=== PATIENT | female | born 1965 | race Caucasian/White ===

== ENCOUNTER 2018-07-04 20:11 | Observation (INO) ==
--- NOTE | 2018-07-04 20:46 | Emergency Department Note ---
ED Disposition Clinical Impression: Renal insufficiency, Overweight (BMI 25.0-29.9) Abscess of skin or subcutaneous tissue Qualifiers: Site of cutaneous abscess: trunk Site of cutaneous abscess of trunk: back Qualified Code(s): L02.212 - Cutaneous abscess of back [any part, except buttock] Disposition: Admitted as Observation Condition on Discharge: Good - Critical Care Critical Care Time: No Attestation: On 07/04/18, the high probability of a clinically significant, sudden or life threatening deterioration of the following system(s) required my full and direct attention, intervention and personal management. The time I documented below is in addition to time spent performing reported procedures but includes the follo wing listed in this critical care notation. Medical Decision Making - Medical Records Medical records reviewed: Yes: I reviewed the patient's medical records. - Caleb Inquiry Pt receiving controlled substance: No Vital Signs: 07/04/18 20:19 Temperature 98.1 F Temperature Source Oral Pulse Rate [Right Brachial] 78 Respiratory Rate 15 Blood Pressure [Right Arm] 133/74 Blood Pressure Mean [Right Arm] 93 Blood Pressure Source [Right Arm] Automatic Cuff Blood Pressure Position [Right Arm] Sitting 02 Sat by Pulse Oximetry 98 Oxygen Delivery Method Room Air - Lab Data Lab results reviewed: Yes: I reviewed the patient's lab results. Lab Results 07/04/18 20:40: WBC 10.9 H, RBC 4.16 L, Hgb 12.4, Hct 39.4, MCV 94.7, MCH 29.9, MCHC 31.6 L, RDW 13.4, Plt Count 406, MPV 7.0 L, Neut % (Auto) 69.2, Lymph % (Auto) 22.6, [place] % (Auto) 5.9, Eos % (Auto) 1.7, Baso % (Auto) 0.6, Neut # (Auto) 7.5, Lymph # (Auto) 2.5, [place] # (Auto) 0.7, Eos # (Auto) 0.2, Baso # (Auto) 0.1 07/04/18 20:40: Sodium 141, Potassium 4.1, Chloride 105, Carbon Dioxide 27, Anion Gap 13.1, BUN 20 H, Creatinine 1.23 H, Estimated Creat Clear 72, Estimated GFR 46 L, Est GFR ( Amer) 55 L, Glucose 103, Calcium 8.6, Total Bilirubin 0.3, AST 31, ALT 50, Alkaline Phosphatase 115, Total Protein 7.3, Albumin 3.3 L, Globulin 4.0 H, Albumin/Globulin Ratio 0.8 L 07/04/18 20:40: Lactate 1.1 07/04/18 20:40: C-Reactive Protein 3.6 H Result diagrams: 07/04/18 20:40 07/04/18 20:40 Orders (Tests/Meds): ED MEDICATIONS Generic Name Dose Route Start Last Admin Trade Name Freq PRN Reason Stop Dose Admin Vancomycin HCl 1,500 mg/ 250 mls @ 125 mls/hr 07/04/18 21:17 07/04/18 21:33 Sodium Chloride IV 07/04/18 23:16 125 mls/hr ONCE ONE Administration ORDERS Category Date Time Status ESR [Erythrocyte Sedimentation Rate] Stat Lab 07/04/18 20:40 Received Blood Culture Stat Micro 07/04/18 20:40 Received - Physician Consults Physician Consulted: sound Reason -: Admission Skin/Abscess/FB HPI - General Chief complaint: Skin/Abscess/Foreign Body Stated complaint: lower back a cyst Time Seen by Provider: 07/04/18 20:25 Mode of Arrival: Ambulatory Limitations: No Limitations Description of Symptoms (Recalled from ER Triage Doc. by RN): presents with abscess to left lower back; states she was seen in urgent care in [place] while riding over the road with her and they put her on antibiotics and pain medicines; abscess has soft center surrounded by cellulitis; worried whether will need lanced or not; - History of Present Illness HPI narrative: pt with progressive swelling to lower back - pt with no hx of diabetes and [facility] - pt on abx with sl improvement - pt with no fever - MD complaint: abscess/boil Onset (ago): day(s) Tetanus up to date: unsure Location: back Severity: moderate Associated symptoms: denies other symptoms Treatments prior to arrival: none - Related Data Home Medications Medication Instructions Recorded Confirmed Hydrocodone/Acetaminophen 1 each PO DIRECTED 07/04/18 07/04/18 [Hydrocodone-Acetamin 5-325 mg] Sulfamethoxazole/Trimethoprim 1 each PO BID 07/04/18 07/04/18 [Bactrim DS tablet] cephALEXin [cephALEXin 500mg 500 mg PO QID 07/04/18 07/04/18 capsule] Allergies Allergy/AdvReac Type Severity Reaction Status Date / Time No Known Drug Allergies Allergy Mild Verified 07/04/18 20:29 [NO KNOWN DRUG ALLERGIES] [facility] History - Hepatitis A Screen Drug use history?: No High risk sexual behaviors?: No History of sexually transmitted infection?: No Currently employed?: No Childcare worker?: No Do you have indoor plumbing?: Yes Do you have electricity?: Yes Attestation statement:: This patient has been screened for Hepatitis A risk factors. I have reviewed the patient's past medical history: Yes - Social History Educational Level: Completed High School Smoking Status: Never smoker Alcohol Intake: never Occupational Status: unemployed Household Members: spouse - Psychiatric History Expresses thoughts of harming self/others: None Suicide Plan Description: No Plan ROS Obtained: Yes All systems reviewed & no additional complaints - Constitutional Constitutional: Denies fever(s) - Eyes Eyes: Denies change in vision - ENT Ears, Nose, Mouth, and Throat: Denies sore throat - Cardiovascular Cardiovascular: Denies chest pain - Respiratory Respiratory: No cough - Gastrointestinal Gastrointestingal: Denies: abdominal pain - Genitourinary Female Genitourinary: Denies hematuria - Musculoskeletal Musculoskeletal: Denies joint pain, Denies joint swelling - Integumentary/Breasts Skin/Breast: Reports as per HPI, Reports boil - Neurologic Neurologic: Denies abnormal gait, Denies headache(s) Physical Exam - General General appearance: alert - Head Head exam: normocephalic - Eye Eye exam: Present: PERRL, EOMI - ENT ENT exam: Present: mucous membranes moist, other (poor dentition) - Neck Neck exam: Present: full ROM - Respiratory Respiratory exam: Absent: respiratory distress - Cardiovascular Cardiovascular exam: Present: regular rate - Abdominal Exam Abdominal exam: Present: soft - Extremities Exam Extremities exam: Present: full ROM - Neurological Exam Neurological exam: Present: alert, oriented X3, CN II-XII intact - Psychiatric Psychiatric exam: Present: normal affect - Skin Skin exam: Present: other (3x5 cm abscess lt lumbar area w/o drainage )
[2018-07-04 20:51] LABS: Basophils # 0.1 K/mm3 (0-0.2); Basophils % 0.6 % (0.1-2.0); Eosinophils # 0.2 K/mm3 (0.0-0.4); Eosinophils % 1.7 % (0.1-12.0); Hematocrit 39.4 % (37.0-47.0); Hemoglobin 12.4 g/dL (12.2-16.2); Lymphocytes # 2.5 K/mm3 (0.7-4.5); Lymphocytes % 22.6 % (10-50); Mean Corpuscular HGB Conc 31.6 g/dL (31.8-35.4); Mean Corpuscular Hemoglobin 29.9 pg (27.0-31.2); Mean Corpuscular Volume 94.7 fl (81-99); Monocytes # 0.7 K/mm3 (0.1-1.0); Monocytes % 5.9 % (1.7-9.3); Neutrophils # 7.5 K/mm3 (1.8-7.8); Neutrophils % 69.2 % (37.0-80.0); Platelet Count 406 K/mm3 (142-424); Red Blood Count 4.16 M/mm3 (4.20-5.40); Red Cell Distribution Width 13.4 % (11.5-17.5); White Blood Count 10.9 K/mm3 (4.8-10.8)
[2018-07-04 21:02] LABS: Albumin Level 3.3 gm/dL (3.4-5.0); Albumin/Globulin Ratio 0.8 (1.1-1.8); Anion Gap 13.1 mEq/L (5-15); Bilirubin,Total 0.3 mg/dL (0.2-1.0); Calcium 8.6 mg/dL (8.5-10.1); Potassium 4.1 mmoL/L (3.5-5.1); Total Protein,Serum 7.3 gm/dL (6.4-8.2)
[2018-07-05 06:30] LABS: Basophils # 0.1 K/mm3 (0-0.2); Basophils % 0.6 % (0.1-2.0); Eosinophils # 0.1 K/mm3 (0.0-0.4); Eosinophils % 1.5 % (0.1-12.0); Hematocrit 35.5 % (37.0-47.0); Lymphocytes # 1.4 K/mm3 (0.7-4.5); Lymphocytes % 15.8 % (10-50); Mean Corpuscular HGB Conc 31.2 g/dL (31.8-35.4); Mean Corpuscular Hemoglobin 30.1 pg (27.0-31.2); Mean Corpuscular Volume 96.6 fl (81-99); Mean Platelet Volume 7.6 fl (7.4-10.4); Monocytes # 0.6 K/mm3 (0.1-1.0); Monocytes % 6.5 % (1.7-9.3); Neutrophils # 6.8 K/mm3 (1.8-7.8); Neutrophils % 75.6 % (37.0-80.0); Platelet Count 324 K/mm3 (142-424); Red Blood Count 3.67 M/mm3 (4.20-5.40); Red Cell Distribution Width 13.3 % (11.5-17.5)
[2018-07-05 06:43] LABS: Hemoglobin 11.3 g/dL (12.2-16.2)
[2018-07-05 07:11] LABS: Anion Gap 13.5 mEq/L (5-15); Potassium 4.5 mmoL/L (3.5-5.1)
--- NOTE | 2018-07-05 10:56 | Consult Report ---
*Admission Date: 07/04/18 *Chief complaint: Left flank abscess. *History of present illness: Ms. Spence is a 53-year-old female with increasing pain and swelling along the left flank. Presented initially 1 week ago; patient thought that she had a "spider bite". Travels with her . Significant progression over the past 7 days while on work trip. Increasing pain prompted evaluation at a local urgent treatment Center in [facility]. Keflex and Bactrim provided. Slight improvement, however, persistent pain prompted emergency department evaluation and [facility]. Admitted. Surgical consultation requested for possible incision and drainage. No similar episodes. No prior abscess. No prior MRSA. Fever chills. No nausea or vomiting. Review of Systems - Review of Systems Review of systems:: pertinent systems reviewed and negative unless documented below Complete review of systems. [facility] History Medical History: Reports:: Hyperlipidemia, Hypertension Denies:: Cancer, Diabetes Mellitus Type 1, Diabetes Mellitus Type 2, MRSA Have you ever received a pneumonia vaccine?: No Have you received a flu vaccine this season?: No Other Medical History: Reports: Arthritis Other Surgeries: Yes: Cholecystectomy, Hysterectomy-Total, Tubal Ligation, Other (TONSILLECTOMY) Amputation: No Fractures: No - *Social History Educational Level: Attended College Smoking Status: Never smoker Alcohol Intake: never Occupational Status: unemployed Housing: other Household Members: spouse Travel in the last 8 weeks: None - Psychiatric History Expresses thoughts of harming self/others: None Suicide Plan Description: No Plan *Family Hx:: Coronary Artery Disease, Hypertension Meds Home Medications Medication Instructions Recorded Confirmed Type Aspirin [Aspir 81] 81 mg PO HS 07/04/18 07/04/18 History Hydrocodone/Acetaminophen 1 each PO DIRECTED 07/04/18 07/04/18 History [Hydrocodone-Acetamin 5-325 mg] Sulfamethoxazole/Trimethoprim 1 each PO BID 07/04/18 07/04/18 History [Bactrim DS tablet] cephALEXin [cephALEXin 500mg 500 mg PO QID 07/04/18 07/04/18 History capsule] Allergies Allergy/AdvReac Type Severity Reaction Status Date / Time No Known Drug Allergies Allergy Mild Verified 07/04/18 20:29 [NO KNOWN DRUG ALLERGIES] Exam Vital signs and Labs for Last 24 Hours: Temp Pulse Resp BP Pulse Ox 98.5 F 104 H 16 142/85 H 100 07/05/18 07:55 07/05/18 07:55 07/05/18 07:55 07/05/18 07:55 07/05/18 07:55 Laboratory Results - last 24 hr 07/04/18 20:40: WBC 10.9 H, RBC 4.16 L, Hgb 12.4, Hct 39.4, MCV 94.7, MCH 29.9, MCHC 31.6 L, RDW 13.4, Plt Count 406, MPV 7.0 L, Neut % (Auto) 69.2, Lymph % (Auto) 22.6, [place] % (Auto) 5.9, Eos % (Auto) 1.7, Baso % (Auto) 0.6, Neut # (Auto) 7.5, Lymph # (Auto) 2.5, [place] # (Auto) 0.7, Eos # (Auto) 0.2, Baso # (Auto) 0.1 07/04/18 20:40: Sodium 141, Potassium 4.1, Chloride 105, Carbon Dioxide 27, Anion Gap 13.1, BUN 20 H, Creatinine 1.23 H, Estimated Creat Clear 72, Estimated GFR 46 L, Est GFR ( Amer) 55 L, Glucose 103, Calcium 8.6, Total Bilirubin 0.3, AST 31, ALT 50, Alkaline Phosphatase 115, Total Protein 7.3, Albumin 3.3 L, Globulin 4.0 H, Albumin/Globulin Ratio 0.8 L 07/04/18 20:40: Lactate 1.1 07/04/18 20:40: ESR 44 H 07/04/18 20:40: C-Reactive Protein 3.6 H 07/05/18 06:12: WBC 9.0, RBC 3.67 L, Hgb 11.3 L, Hct 35.5 L, MCV 96.6, MCH 30.1, MCHC 31.2 L, RDW 13.3, Plt Count 324, MPV 7.6, Neut % (Auto) 75.6, Lymph % (Auto) 15.8, [place] % (Auto) 6.5, Eos % (Auto) 1.5, Baso % (Auto) 0.6, Neut # (Auto) 6.8, Lymph # (Auto) 1.4, [place] # (Auto) 0.6, Eos # (Auto) 0.1, Baso # (Auto) 0.1 07/05/18 06:12: Sodium 143, Potassium 4.5, Chloride 107, Carbon Dioxide 27, Anio n Gap 13.5, BUN 15, Creatinine 1.08 H, Estimated Creat Clear 95, Estimated GFR 53 L, Est GFR ( Amer) 64, Glucose 93, Calcium 8.0 L I & O for Last 24 hours: Intake & Output 07/02/18 07/03/18 07/04/18 07/05/18 11:59 11:59 11:59 11:59 Intake Total 1155 / 1155 Balance 1155 / 1155 Weight 99.592 kg - Constitutional no acute distress - *Routine Respiratory Exam Present: CTA bilaterally - *Routine Cardiovascular Exam Present: RRR - *Routine Abdominal Exam Present: soft - Routine Back/Spine/Pelvis Exam Back/Spine: Present: paraspinal tenderness, erythema Comments: Area of induration with overlying cellulitis and fluctuance along the left lower back/flank. Results - Labs 07/05/18 06:12 07/05/18 06:12 Laboratory Results - last 24 hr 07/04/18 20:40: WBC 10.9 H, RBC 4.16 L, Hgb 12.4, Hct 39.4, MCV 94.7, MCH 29.9, MCHC 31.6 L, RDW 13.4, Plt Count 406, MPV 7.0 L, Neut % (Auto) 69.2, Lymph % (Auto) 22.6, [place] % (Auto) 5.9, Eos % (Auto) 1.7, Baso % (Auto) 0.6, Neut # (Auto) 7.5, Lymph # (Auto) 2.5, [place] # (Auto) 0.7, Eos # (Auto) 0.2, Baso # (Auto) 0.1 07/04/18 20:40: Sodium 141, Potassium 4.1, Chloride 105, Carbon Dioxide 27, Anion Gap 13.1, BUN 20 H, Creatinine 1.23 H, Estimated Creat Clear 72, Estimated GFR 46 L, Est GFR ( Amer) 55 L, Glucose 103, Calcium 8.6, Total Bilirubin 0.3, AST 31, ALT 50, Alkaline Phosphatase 115, Total Protein 7.3, Albumin 3.3 L, Globulin 4.0 H, Albumin/Globulin Ratio 0.8 L 07/04/18 20:40: Lactate 1.1 07/04/18 20:40: ESR 44 H 07/04/18 20:40: C-Reactive Protein 3.6 H 07/05/18 06:12: WBC 9.0, RBC 3.67 L, Hgb 11.3 L, Hct 35.5 L, MCV 96.6, MCH 30.1, MCHC 31.2 L, RDW 13.3, Plt Count 324, MPV 7.6, Neut % (Auto) 75.6, Lymph % (Auto) 15.8, [place] % (Auto) 6.5, Eos % (Auto) 1.5, Baso % (Auto) 0.6, Neut # (Auto) 6.8, Lymph # (Auto) 1.4, [place] # (Auto) 0.6, Eos # (Auto) 0.1, Baso # (Auto) 0.1 07/05/18 06:12: Sodium 143, Potassium 4.5, Chloride 107, Carbon Dioxide 27, Anion Gap 13.5, BUN 15, Creatinine 1.08 H, Estimated Creat Clear 95, Estimated GFR 53 L, Est GFR ( Amer) 64, Glucose 93, Calcium 8.0 L Assessment and Plan (1) Abscess of skin or subcutaneous tissue Current visit: Yes Status: Acute Qualifiers: Site of cutaneous abscess: trunk Site of cutaneous abscess of trunk: back Qualified Code(s): L02.212 - Cutaneous abscess of back [any part, except buttock] Category: Medical Code(s): L02.91 - Cutaneous abscess, unspecified - Assessment and plan all Dx Assessment and Plan for all problems:: Left flank abscess. Area of fluctuance noted at the apex of cellulitis. Recommend bedside incision and drainage. Transition to oral antibiotics. Discharge planning after drainage.
--- NOTE | 2018-07-05 11:45 | Operative Note ---
Date of procedure: 07/05/18 Pre-op Diagnosis:: Left flank abscess. Post-op Diagnosis:: Left flank abscess. Procedure performed:: Incision and drainage of left flank abscess. Surgeon:: Nahid Valladares MD Anesthesia: local Estimated blood loss (mL): 5 Operative findings:: Relatively small abscess with significant associated induration. Operative note:: Patient was properly identified and consent was obtained. Patient was placed in the right lateral decubitus position. Area of induration and fluctuance noted over the left flank. Blanching of the skin was noted at the apex with underlying fluctuance. [place]far[place] of lesion was locally anesthetized with lidocaine 1%. Cruciate incision was made with scalpel blade. Immediate rash of purulent drainage was obtained. Yankauer suction placed in the incision site. Additional pus was evacuated. Abscess cavity was noted to be relatively small. Significant associated induration. Immediate improvement in appearance was noted. No loculations. No evidence of undrained fluid. Wound packed with 2 inch Amanuel gauze. Covered with 4 x 4 dressing. Patient tolerated procedure well. Condition: stable Disposition: no change Complications:: None.
--- NOTE | 2018-07-05 11:55 | Pharmacy Consult Notes ---
[facility] Pharmacy VTE Monitoring - Patient Demographics Admission date: 07/04/18 Report Date: 07/05/18 Time: 11:55 Allergies/Adverse Reactions: Patient Allergies No Known Drug Allergies [NO KNOWN DRUG ALLERGIES] Allergy (Mild, Verified 07/04/18 20:29) Height: 1.68 m Weight: 99.592 kg Patient Problems: Current Active Problems Abscess of skin or subcutaneous tissue (Acute) Renal insufficiency (Acute) Overweight (BMI 25.0-29.9) (Acute) - VTE Risk Labs: VTE Related Lab Results Hgb 11.3 g/dL (12.2-16.2) L 07/05/18 06:12 Hct 35.5 % (37.0-47.0) L 07/05/18 06:12 Plt Count 324 K/mm3 (142-424) 07/05/18 06:12 BUN 15 mg/dL (7-18) 07/05/18 06:12 Creatinine 1.08 mg/dL (0.55-1.02) H 07/05/18 06:12 Estimated Creat Clear 95 mL/min (50-200) 07/05/18 06:12 Was VTE Risk Assessment Performed: Yes VTE Score: 3 VTE Risk Level: Low Risk - Prophylaxis VTE Prophylaxis Ordered?: Yes Types of VTE Prophylaxis: TEDS Knee High Location of Applied Device: Bilateral Lower Extremeties
--- NOTE | 2018-07-05 11:58 | H&P/Discharge Summary ---
General - General Admission date:: 07/04/18 Discharge date: 07/05/18 *Admission Date: 07/04/18 *Chief complaint: abscess on back *History of present illness: Patient was admitted to our facility for abscess in her left flank region after failing 2 outpatient abx (penicillin and bactrim). She mentioned that she feeling pain and the abscess wasn't getting any better, so she decided to come to our ER for further evaluation. She endorsed that the swelling started about a 5-7 days ago and was thought to be a spider bite. She was travelling with her and was evaluated at in [place], which is where she was given the abx. She mentioned that there was some slight improvement with abx but persistent pain, which was treated with pain pills per patient. No prior abscess. No prior MRSA. No Fever or chills. No nausea or vomiting. [facility] History I have reviewed the patient's past medical history: Yes Medical History: Reports:: Hyperlipidemia, Hypertension Denies:: Cancer, Diabetes Mellitus Type 1, Diabetes Mellitus Type 2, MRSA Have you ever received a pneumonia vaccine?: No Have you received a flu vaccine this season?: No Other Medical History: Reports: Arthritis Other Surgeries: Yes: Cholecystectomy, Hysterectomy-Total, Tubal Ligation, Other (TONSILLECTOMY) Amputation: No Fractures: No - *Social History Educational Level: Attended College Smoking Status: Never smoker Alcohol Intake: never Occupational Status: unemployed Housing: other Household Members: spouse Travel in the last 8 weeks: None - Psychiatric History Expresses thoughts of harming self/others: None Suicide Plan Description: No Plan *Family Hx:: Coronary Artery Disease, Hypertension Review of Systems - Constitutional Denies fever(s), Denies lack of energy - Eyes Denies blind spots - ENT Denies abnormal hearing - *Cardiovascular Denies chest pain, Denies chest pain at rest - *Respiratory Denies change in phlegm color - *Gastrointestinal Denies abdominal pain - *Musculoskeletal Denies abnormal walking - Integumentary/Breasts Denies acne - *Neurologic Denies abnormal walking, Denies headache(s) - Psychiatric Denies abnormal sleep pattern - Endocrine Denies cold intolerance - Hematologic/Lymphatic Denies easy bleeding - Allergic/Immunologic Denies GI upset with certain foods (abscess on back noted s/p I & D) Exam Vital signs and Labs for Last 24 Hours: Temp Pulse Resp BP Pulse Ox 98.5 F 104 H 16 142/85 H 100 07/05/18 07:55 07/05/18 07:55 07/05/18 07:55 07/05/18 07:55 07/05/18 07:55 Laboratory Results - last 24 hr 07/04/18 20:40: WBC 10.9 H, RBC 4.16 L, Hgb 12.4, Hct 39.4, MCV 94.7, MCH 29.9, MCHC 31.6 L, RDW 13.4, Plt Count 406, MPV 7.0 L, Neut % (Auto) 69.2, Lymph % (Auto) 22.6, [place] % (Auto) 5.9, Eos % (Auto) 1.7, Baso % (Auto) 0.6, Neut # (Auto) 7.5, Lymph # (Auto) 2.5, [place] # (Auto) 0.7, Eos # (Auto) 0.2, Baso # (Auto) 0.1 07/04/18 20:40: Sodium 141, Potassium 4.1, Chloride 105, Carbon Dioxide 27, Anion Gap 13.1, BUN 20 H, Creatinine 1.23 H, Estimated Creat Clear 72, Estimated GFR 46 L, Est GFR ( Amer) 55 L, Glucose 103, Calcium 8.6, Total Bilirubin 0.3, AST 31, ALT 50, Alkaline Phosphatase 115, Total Protein 7.3, Albumin 3.3 L, Globulin 4.0 H, Albumin/Globulin Ratio 0.8 L 07/04/18 20:40: Lactate 1.1 07/04/18 20:40: ESR 44 H 07/04/18 20:40: C-Reactive Protein 3.6 H 07/05/18 06:12: WBC 9.0, RBC 3.67 L, Hgb 11.3 L, Hct 35.5 L, MCV 96.6, MCH 30.1, MCHC 31.2 L, RDW 13.3, Plt Count 324, MPV 7.6, Neut % (Auto) 75.6, Lymph % (Auto) 15.8, [place] % (Auto) 6.5, Eos % (Auto) 1.5, Baso % (Auto) 0.6, Neut # (Auto) 6.8, Lymph # (Auto) 1.4, [place] # (Auto) 0.6, Eos # (Auto) 0.1, Baso # (Auto) 0.1 07/05/18 06:12: Sodium 143, Potassium 4.5, Chloride 107, Carbon Dioxide 27, Anion Gap 13.5, BUN 15, Creatinine 1.08 H, Estimated Creat Clear 95, Estimated GFR 53 L, Est GFR ( Amer) 64, Glucose 93, Calcium 8.0 L I & O for Last 24 hours: Intake & Output 07/02/18 07/03/18 07/04/18 07/05/18 11:59 11:59 11:59 11:59 Intake Total 1155 / 1155 Balance 1155 / 1155 Weight 219 lb 9 oz - *Routine HEENT Exam Head: Present: normocephalic Eye: Present: EOMI ENT: Present: mucous membranes moist - *Routine Neck Exam Present: supple, full ROM - *Routine Respiratory Exam Present: CTA bilaterally - *Routine Cardiovascular Exam Present: RRR - *Routine Abdominal Exam Present: soft, normoactive bowel sounds - *Routine Extremities Exam Absent: edema - Routine Back/Spine/Pelvis Exam Back/Spine: Present: erythema (s/p I & D on left flank) - *Routine Skin Exam Present: erythema - *Routine Neurological Exam Present: alert, oriented X3 - Routine Psychiatric Exam Present: normal affect Hospital Course Hospital Course: Patient was admiited to our facility of abscess in her back that was getting worse after failing 2 abx outpatient. Surgical consult was placed and Dr. Valladares did bedside I &D. Please see his operative note for full details. Dressings were placed and I saw the patient after I &D. She seemed to tolerated the procedure well. Patient is to be discharged with PO antibiotics per Surgery. Results Labs on day of discharge: Labs from last 24 hours 07/05/18 07/05/18 07/04/18 06:12 06:12 20:40 WBC 9.0 RBC 3.67 L Hgb 11.3 L Hct 35.5 L MCV 96.6 MCH 30.1 MCHC 31.2 L RDW 13.3 Plt Count 324 MPV 7.6 Neut % (Auto) 75.6 Lymph % (Auto) 15.8 [place] % (Auto) 6.5 Eos % (Auto) 1.5 Baso % (Auto) 0.6 Neut # (Auto) 6.8 Lymph # (Auto) 1.4 [place] # (Auto) 0.6 Eos # (Auto) 0.1 Baso # (Auto) 0.1 ESR Sodium 143 Potassium 4.5 Chloride 107 Carbon Dioxide 27 Anion Gap 13.5 BUN 15 Creatinine 1.08 H Estimated Creat Clear 95 Estimated GFR 53 L Est GFR ( Amer) 64 Glucose 93 Lactate Calcium 8.0 L Total Bilirubin AST ALT Alkaline Phosphatase C-Reactive Protein 3.6 H Total Protein Albumin Globulin Albumin/Globulin Ratio 07/04/18 07/04/18 07/04/18 20:40 20:40 20:40 WBC RBC Hgb Hct MCV MCH MCHC RDW Plt Count MPV Neut % (Auto) Lymph % (Auto) [place] % (Auto) Eos % (Auto) Baso % (Auto) Neut # (Auto) Lymph # (Auto) [place] # (Auto) Eos # (Auto) Baso # (Auto) ESR 44 H Sodium 141 Potassium 4.1 Chloride 105 Carbon Dioxide 27 Anion Gap 13.1 BUN 20 H Creatinine 1.23 H Estimated Creat Clear 72 Estimated GFR 46 L Est GFR ( Amer) 55 L Glucose 103 Lactate 1.1 Calcium 8.6 Total Bilirubin 0.3 AST 31 ALT 50 Alkaline Phosphatase 115 C-Reactive Protein Total Protein 7.3 Albumin 3.3 L Globulin 4.0 H Albumin/Globulin Ratio 0.8 L 07/04/18 20:40 WBC 10.9 H RBC 4.16 L Hgb 12.4 Hct 39.4 MCV 94.7 MCH 29.9 MCHC 31.6 L RDW 13.4 Plt Count 406 MPV 7.0 L Neut % (Auto) 69.2 Lymph % (Auto) 22.6 [place] % (Auto) 5.9 Eos % (Auto) 1.7 Baso % (Auto) 0.6 Neut # (Auto) 7.5 Lymph # (Auto) 2.5 [place] # (Auto) 0.7 Eos # (Auto) 0.2 Baso # (Auto) 0.1 ESR Sodium Potassium Chloride Carbon Dioxide Anion Gap BUN Creatinine Estimated Creat Clear Estimated GFR Est GFR ( Amer) Glucose Lactate Calcium Total Bilirubin AST ALT Alkaline Phosphatase C-Reactive Protein Total Protein Albumin Globulin Albumin/Globulin Ratio DS: Diagnosis - Discharge Diagnosis (1) Abscess of skin or subcutaneous tissue Status: Acute Problem details: s/p I &D by Dr. Valladares Discharge Medications - Medications for Discharge Home Medication List at Discharge: New Clindamycin HCl [Clindamycin HCl 300mg Cap] 300 mg PO Q8 10 Days #30 cap Continue Hydrocodone/Acetaminophen [Hydrocodone-Acetamin 5-325 mg] 1 each PO BIDP PRN PRN Reason: PAIN Aspirin [Aspir 81] 81 mg PO HS Discontinued Sulfamethoxazole/Trimethoprim [Bactrim DS tablet] 1 tab PO BID cephALEXin [cephALEXin 500mg capsule] 500 mg PO QID Disposition Disposition: Home, Self-Care
== END 2018-07-05 13:30 | disposition home or self-care (01) ==
LOC: 2ND 20:11 → ER 20:11 → 2ND 22:33
PROVIDERS: ADMIT Emergency Medicine; ATTEND Emergency Medicine
CPT/HCPCS: 10061; 36415; 80048; 80053; 83605; 85025; 85651; 86140; 87040; 96365; 99283; G0378; J3370

== ENCOUNTER → 2020-11-28 11:23 | Outpatient (CLI) | payer BC, SELFPAY ==
--- NOTE | 2020-11-28 11:31 | XR_ITS ---
PROCEDURE: XR FOOT LT MIN 3V CLINICAL INDICATION: LT FOOT PAIN COMPARISON: No exams were available for comparison FINDINGS: No fracture or dislocation. No lytic or blastic change. There is normal mineralization. The joint spaces are well-preserved. No significant degenerative/arthritic changes. No erosive changes evident. Other findings:None. IMPRESSION: No acute findings. Dictated by: Pineda Maier MD 11/28/2020 11:57 Pineda Maier MD in [place] 11/28/2020 11:57
== END ==
PROVIDERS: PCP Nurse Practitioner Family; Visit Provider Nurse Practitioner Family
DX: M79.672 Pain in left foot (principal)
CPT/HCPCS: 73630

== ENCOUNTER 2021-03-29 13:00 | Outpatient (RCR) | payer OTHER, SELFPAY ==
--- NOTE | 2021-03-27 14:09 | HMH.PTOPEV ---
PT Outpatient Evaluation Rehab PT Outpatient Evaluation Start: 03/27/21 13:22 Freq: Status: Active Protocol: Document 03/27/21 13:22 PARAMJIT (Rec: 03/27/21 14:09 [email or web address] [id number]) Electronically Signed By Danny Bhakta, PT 03/27/21 13:22 Outpatient Therapy Subjective History Subjective History Pt. is a 56 year old female who presents to Outpatient P.T. clinic w/ c/o chronic and constant LLE heel( plantar surface) and medial arch P!, antalgic gait, and + TTP of insidious onset since August 2020. Pt. reports symptoms worsening w/ prolonged standing and ambulation. Pt. reports having some symptom relief(~1 hour) w/ prescribed boot that puts the ankle in prolonged DF. Pt. also reports having some symptom relief resting and icing. Recent diagnostic imaging positive for a heel osteophyte per pt. report. Pt. denies having injections for current pathology. Pt. RTMD . Pt. denies having a pacemaker, but reports having an allergy to latex and adhesive tape. Current medications include Meloxicam, Aspirin, Oxybutynin, Vitamin D, Metoprolol, Omeprazole, and Atorvastatin. PMH includes pre-diabetic, Hypertension, Hyperlipidemia, OA, Acid Reflux or GERD , Cholecystectomy, Tonsillectomy , and cystectomy x 2(vaginal/ lumbar). Pt. denies history of cancer(self). Chief Complaint Pain,Stiff,Swelling,Weakness Symptom Type Ache,Sharp,Dull,Stabbing, Burning,Shooting Symptoms Relieved By Rest/Positioning,Ice,Brace/ Support,Prescription Meds Symptoms Aggravated By Standing,Physical Activity, Walking Prior Functional Limitations None Current Functional Limitations Housework,Sleeping,Standing, Squatting,Recreation Activity
== END 2021-04-27 15:53 | disposition home or self-care (01) ==
LOC: PT.CARL 13:00
PROVIDERS: PCP Nurse Practitioner Family; Visit Provider Podiatrist
DX: M72.2 Plantar fascial fibromatosis (principal)
CPT/HCPCS: 97010; 97014; 97110; 97140; 97163; G0283

== ENCOUNTER → 2022-01-29 12:50 | Outpatient (CLI) | payer OTHER, SELFPAY ==
--- NOTE | 2022-01-29 12:56 | XR_ITS ---
FINAL REPORT CLINICAL HISTORY: RT KNEE PAIN FINDINGS: RIGHT KNEE 3 views of the right knee were obtained. There is no acute fracture or dislocation. Visualized joint spaces are normally aligned. Soft tissues are unremarkable. IMPRESSION: No acute bony abnormality. Reviewed, Interpreted and Dictated by Nahid Tovar MD Transcribed by Delia Corona Authenticated and [facility]
== END ==
PROVIDERS: PCP Nurse Practitioner Family; Visit Provider Nurse Practitioner Family
DX: M25.561 Pain in right knee (principal)
CPT/HCPCS: 73562

== ENCOUNTER → 2022-12-19 15:38 | Outpatient (CLI) | payer BC, SELFPAY ==
--- NOTE | 2022-12-19 15:42 | MM_ITS ---
PROCEDURE INFORMATION: Exam: MG Bilateral Screening 3D Mammography Exam date and time: 12/19/2022 3:40 PM Age: 57 years old Clinical indication: Screening mammogram. Family history of breast cancer in grandmother TECHNIQUE: Imaging protocol: Bilateral Screening tomosynthesis and 2D mammography including computer-aided detection (CAD) when performed. COMPARISON: SD Screening-Bilateral Mammography 11/30/2020 3:53 PM FINDINGS: MAMMOGRAPHY: Breast composition: The breasts are almost entirely fatty. Mass: None. Architectural distortion: No new or suspicious architectural distortion. Calcifications: No new or suspicious calcifications are present Asymmetric density: No new or suspicious asymmetric density is present Skin thickening: None. Axillary adenopathy: None. IMPRESSION: No mammographic evidence of malignancy. Recommend annual screening mammography unless otherwise clinically indicated. ASSESSMENT: BI-RADS category 1: Negative
== END ==
PROVIDERS: PCP Nurse Practitioner Family; Visit Provider Nurse Practitioner Family
DX: Z12.31 Encounter for screening mammogram for malignant neoplasm of breast (principal)
CPT/HCPCS: 77063; 77067

== ENCOUNTER 2023-12-30 12:30 | Outpatient (CLI) | payer BC, SELFPAY ==
--- NOTE | 2023-12-30 12:36 | MM_ITS ---
PROCEDURE INFORMATION: Exam: MG Bilateral Screening 3D Mammography Exam date and time: 12/30/2023 12:50 PM Age: 58 years old Clinical indication: Screening examination . Family history of breast carcinoma. TECHNIQUE: Imaging protocol: Bilateral Screening tomosynthesis and 2D mammography including computer-aided detection (CAD) when performed. COMPARISON: 1. MG MM DIG SCREENING MAMM BI W/CAD 12/19/2022 3:40 PM 2. SD Screening-Bilateral Mammography 11/30/2020 3:53 PM FINDINGS: MAMMOGRAPHY: Breast composition: There are scattered areas of fibroglandular density. Mass: No suspicious masses. Architectural distortion: No suspicious distortion. Calcifications: No suspicious calcifications. Asymmetric density: None. Skin thickening: None. Axillary adenopathy: None. IMPRESSION: No mammographic evidence of malignancy. Annual screening is recommended unless otherwise clinically indicated. ASSESSMENT: BI-RADS Category 1: Negative
== END 2023-12-30 23:59 | disposition home or self-care (01) ==
LOC: RAD 12:32
PROVIDERS: PCP Nurse Practitioner Family; Visit Provider Nurse Practitioner Family
DX: Z12.31 Encounter for screening mammogram for malignant neoplasm of breast (principal)
CPT/HCPCS: 77063; 77067

== ENCOUNTER 2025-01-15 12:42 | Outpatient (CLI) | payer OTHER, SELFPAY ==
--- NOTE | 2025-01-15 12:44 | MM_ITS ---
PROCEDURE INFORMATION: Exam: MG Bilateral Screening 3D Mammography Exam date and time: 01/15/2025 12:59 PM Age: 60 years old Clinical indication: Screening examination. A maternal cousin had breast cancer TECHNIQUE: Imaging protocol: Bilateral Screening tomosynthesis and 2D mammography including computer-aided detection (CAD) when performed. COMPARISON: 1. MG MM DIG SCREENING MAMM BI W/CAD 12/30/2023 12:50 PM 2. MG MM DIG SCREENING MAMM BI W/CAD 12/19/2022 3:40 PM 3. SD Screening-Bilateral Mammography 11/30/2020 3:53 PM FINDINGS: MAMMOGRAPHY: Breast composition: There are scattered areas of fibroglandular density. Mass: None. Architectural distortion: None. Calcifications: No suspicious calcifications. Asymmetric density: None. Skin thickening: None. Axillary adenopathy: None. IMPRESSION: No mammographic evidence of malignancy. Annual screening is recommended unless otherwise clinically indicated. ASSESSMENT: BI-RADS Category 1: Negative.
== END 2025-01-15 23:59 | disposition home or self-care (01) ==
LOC: RAD 12:42
PROVIDERS: PCP Nurse Practitioner Family; Visit Provider Nurse Practitioner Family
DX: Z12.31 Encounter for screening mammogram for malignant neoplasm of breast (principal)
CPT/HCPCS: 77063; 77067